=== PATIENT | female | born 1995 | race Caucasian/White ===

== ENCOUNTER 2018-11-22 15:04 | Emergency (ER) | payer BC ==
[2018-11-22] MEDS ORDERED: Ketorolac Tromethamine 30 MG/ML VIAL ONE (16:08)
== END 2018-11-22 16:26 | disposition home or self-care (01) ==
LOC: ERS 15:04
DX: M54.5 Low back pain (principal)
CPT/HCPCS: 96372; 99283; J1885

== ENCOUNTER 2020-04-19 04:03 | Day surgery (SDC) | payer BC, OTHER ==
[2020-04-19 05:22] VITALS: BMI 32.8
[2020-04-19] MEDS ORDERED: hydrALAZINE 20 MG/ML VIAL SLOW IVP PRN (07:09)
[2020-04-19] MEDS ORDERED: diphenhydrAMINE 50 MG/ML VIAL IVP PRN (07:10)
[2020-04-19] MEDS ORDERED: Metoclopramide HCl 10 MG/2 ML VIAL IVP PRN (07:10)
[2020-04-19] MEDS ORDERED: Lactated Ringer's 1,000 ML IV SCH (07:15)
--- NOTE | 2020-04-19 08:15 | PRG ---
DATE OF SERVICE: 04/19/2020 CHIEF COMPLAINT: Nausea, vomiting, and headache. HISTORY OF PRESENT ILLNESS: The patient is a 24-year-old G2, P1 female with an intrauterine at 30 weeks and 4 days, who woke up this morning about 2 o'clock with a bad pulsating headache, sensitive to light and standing that she reports is primarily now on her right side. She also reports that she subsequently has had nausea and vomiting associated with this headache and had not had these symptoms regularly prior. The patient does report that she has had headaches off and on throughout the . She also reports that she a few days ago went in to see a doctor for concerns of COVID and was tested negative. She also reports that she is currently on Macrobid for urinary tract infection, which she has been on for a couple of days. The patient denies fever, chest pain, shortness of breath, diarrhea or constipation, or new rashes. She has hip pressure when she sleeps, but denies any weakness. She denies vaginal bleeding or leakage of fluid. She denies urinary urgency or frequency. The patient reports that since coming to the hospital, her headache has improved some, though not resolved, and the patient has had no vomiting since arriving to the hospital. PAST MEDICAL HISTORY: Currently UTI and history of headaches. PAST SURGICAL HISTORY: She has had ankle surgery and wisdom teeth extraction. ALLERGIES: PENICILLIN. MEDICATIONS: 1. Macrobid. 2. vitamins. SOCIAL HISTORY: Denies drug, alcohol, or tobacco use. OB LABS: Unavailable at the time of dictation. REVIEW OF SYSTEMS: As per HPI. PHYSICAL EXAMINATION: VITAL SIGNS: Blood pressure 106/51, heart rate of 83, respiratory rate of 16, saturating 99% on room air, temperature 98.7. GENERAL: She appears to be in no acute distress. She is alert, oriented, cooperative, and pleasant to interact with. HEAD: Normocephalic and atraumatic. LUNGS: Are clear to auscultation bilaterally. HEART: Has a regular rate and rhythm. ABDOMEN: Soft, gravid, nontender. EXTREMITIES: Are nontender and nonedematous. heart tracing: Baby is difficult to trace, however, in the beginning 30 minutes or 40 minutes or so. The patient has fetus with a baseline in the 130s with moderate long-term variability, positive 15 x 15 accelerations, no decelerations. There is some irritability seen on the monitor, but not felt by the patient. ASSESSMENT AND PLAN: The patient is a 24-year-old female, presenting for headache, nausea, and vomiting. This symptoms are consistent with migraine headache. Though her headache has improved, it has not been improved to the patient's satisfaction. She has accepted a migraine protocol in attempt to resolve this headache of Reglan 10 mg q.30 minutes x2 hours p.r.n. for headache and Benadryl 25 mg q.1 hour x2 p.r.n. for headache. The patient is getting IV and will be also given IV fluids during this time. Dr. Reddy is the oncoming physician who will be giving disposition. Anticipate discharge home. The fetus has a category 1 tracing and reactive NST. Job ID: [id number]
--- NOTE | 2020-04-19 09:10 | PDOC.BPN ---
- Brief Progress Note Encounter Date: 04/19/20 Encounter Time: 09:09 Patient feeling better after 1 round of the migraine protocol. Ready to go home, requesting note for work. D/c home with precautions. Advised to follow up as scheduled.
[2020-04-19] MEDS ORDERED: FLU VACC QS2020-21(6MOS UP)/PF 60 MCG/0.5 ML SYRINGE IM ONE (21:00)
== END 2020-04-19 09:15 | disposition home or self-care (01) ==
LOC: L&D/OP 04:03
PROVIDERS: ATTEND Obstetrics & Gynecology
DX: O21.2 Late vomiting of pregnancy (principal); O99.891 Other specified diseases and conditions complicating pregnancy; R51.9 Headache, unspecified; O23.43 Unspecified infection of urinary tract in pregnancy, third trimester; B96.89 Other specified bacterial agents as the cause of diseases classified elsewhere; Z3A.30 30 weeks gestation of pregnancy; Z79.2 Long term (current) use of antibiotics; Z88.0 Allergy status to penicillin; Z88.5 Allergy status to narcotic agent
CPT/HCPCS: 96360; 96375; 99282; J1200; J2765

== ENCOUNTER 2020-05-26 18:08 | Day surgery (SDC) | payer BC, OTHER ==
[2020-05-26 18:39] VITALS: BMI 47.2
[2020-05-26] MEDS ORDERED: hydrALAZINE 20 MG/ML VIAL SLOW IVP PRN (19:06)
[2020-05-26 19:16] LABS: Amnisure Test No Membranes Rupture (No Rupture)
[2020-05-26 19:18] LABS: Amnisure Internal Control QC ACCEPTABLE (ACCEPTABLE)
--- NOTE | 2020-05-26 19:27 | PDOC.FPROB ---
FMR OB H&P: HPI - History of Present Illness Chief Complaint: LOF Indentification: 24yo @ 35.6 presents for concern for LOF History of Present Illness: 24yo @ 35.6 presents for concern for LOF. Patient states was seen in office earlier this week and told her "fluid was low," and she has follow up next week for repeat sono and discuss management. Earlier today at approx 1100 she noticed yenifer liner was wet with a yellow fluid. Then again at approx 1500 with a clear fluid. No foul smell. No dysuria, but does endorse suprapubic cramping. Also endorses mild vaginal irritation and burning with a brown-yellow discharge at times. Endorses good movement, no vaginal bleeding, no contractions. Denies MAGUIRE, vision changes, SOB, CP, fever/chills, n/v. No recent intercourse. No history of STDs. Primary Care Physician: Roxanne FMR OB H&P: Current - Care : 2 Para: 1001 Gestational age: 35.6 Due date: 06/24/20 - OB Labs Blood type: A RH: positive Antibody Screen: negative HIV: negative RPR: negative HepBsAg: negative Rubella: immune Quad screen: negative Gonorrhea: negative Chlamydia: negative 1 hour gtt: 89 H&H: 13.0 Platelets: 234 Additional labs: Hep C negative FMR OB H&P: History - Past Medical History PMH: Occasional headaches, GERD - OB History OB History: Previous vaginal delivery, term, no complications or during labor. - OIL [employer] MECH[employer]IC History [employer] MECH[employer]IC History: Denies - Surgical History Sx History: Ankle surgery, teeth extraction - Social History Social History: Engaged. Denies Tob, EtOH, illicits. - Family History Family History: Denies FMR OB H&P: Medications - Current Home Medications: Medication Instructions Recorded Confirmed Type Pnv No.95/Ferrous Fum/Folic AC 1 tab PO DAILY 05/26/20 05/26/20 History [ [place]] Allergies/Adverse Reactions: Allergies Allergy/AdvReac Type Severity Reaction Status Date / Time Penicillins Allergy Verified 05/26/20 18:40 FMR OB H&P: ROS - Review of Systems General: denies: fever/chills, weight/appetite/sleep changes, night sweats, fatigue Eyes: denies: vision changes, scotomas ENT: denies: nasal congestion, rhinorrhea Cardiovascular: denies: chest pain, palpitation Respiratory: denies: cough, congestion, shortness of breath Gastrointestinal: denies: abdominal pain, cramping, nausea, vomiting, diarrhea, constipation Genitourinary (Female): reports: vaginal discharge, vaginal pain. denies: incontinence, dysuria, hematuria, hesitancy, vaginal bleeding, contractions Musculoskeletal: denies: pain, stiffness Neurologic: denies: numbness, syncope Integumentary: denies: rash Psychological: denies: depression, anxiety FMR OB H&P: Vital Signs - Maternal Vital signs: T 98, HR 100, RR 18, BP 128/76, 99% RA - Heart Tones Baseline: 130 Variability: moderate Acceleration: present Deceleration: absent Category: category 1 [place] contractions every: occasional, not felt by patient FMR OB H&P: Physical Exam - Physical Exam General: NAD, awake, alert and oriented, other (obese) HEENT: normocephalic and atraumatic, PERRLA, EOMI, MMM, conjunctiva clear Neck: supple, trachea midline Heart: RRR, normal S1/S2, no murmurs/rubs/gallops, no edema General: CTAB, no respiratory distress, good air movement, no rales/rhonchi, no wheezing Abdomen: soft, gravid, non-tender, bowel sound present Musculoskeletal: FROM in all four extremities Neurological: no focal deficit Psychiatric: intact recent and remote memory, good judgement and insight, normal mood and affect - Pelvic Exam Vulva: normal hair distribution, no masses, no lesions, no discharge, no blood, normal rugae Cervix: no masses, no lesions, no blood Deviation from normal: thick, yellow discharge in posterior fornix, mild cervical irritation. Membranes: Intact. No LOF with valsalva, no pooling of fluid noted FMR OB H&P: Results - Labs Lab results: Laboratory Results - last 24 hr 05/26/20 18:55 Amnio Swab Test No Membranes Rupture FMR OB H&P: A/P - Problem List (1) Term Current Visit: Yes Status: Acute Code(s): Z34.90 - ENCNTR FOR SUPRVSN OF NORMAL , UNSP, UNSP TRIMESTER Disposition: 24yo @ 35.6 presents for concern for LOF #Term , concern for SROM - Concern for SROM with LOF today at 2 episodes - Also concerns for suprapubic cramping and vaginal discharge - Amnisure negative, Spec exam with no pooling and no LOF with valsalva - Spec exam with mild thick, yellow discharge and cervicitis. VP3 obtained and positive for BV. - Straight cath UA obtained and clean, no evidence of UTI - Cat 1 FHT, accels, no deccels, occasional small ctx, not felt by patient #"Low fluid" per patient - reported by patient, found on sono this week - FHT reassuring - Contacted Dr. Oliveira, SHIRIN was low end of normal but not oligo. Recommended patient follow up next week as previously scheduled. Information given to patient. PCP: Roxanne Dispo: Amnisure and Spec exam negative for ROM. UA clean. VP3 positive for BV, w ill send in flagyl. Cat 1 FHT, no evidence of labor. Encouraged close follow up with PCP early next week as previously scheduled. Discussion: Date/Time: 05/26/201923 This H&P was discussed with Dr. Cortez who agrees with the above documentation and plan.
[2020-05-26 19:46] LABS: Bacteria/HPF None Seen HPF (None Seen); Bilirubin Negative (Negative); Blood, Urine Negative (Negative); Clarity Clear (Clear); Glucose, Urine (Dipstick) Normal (Negative); Ketone, Urine Negative (Negative); Leukocyte Negative Leu/uL (Negative); Mucous/LPF Rare LPF (<2+); Nitrite Negative (Negative); Protein, Urine (Dipstick) 20 mg/dL (Neg-Trace); RBC/HPF 0-3 HPF (0-3); Specific Gravity, Urine 1.028 (1.002-1.036); Squamous Epithelial 0-3 HPF (0-3); Urobilinogen 3 mg/dL (Less than 2); WBC/HPF 0-3 HPF (0-3); pH, Urine 6.5 (5.0-9.0)
--- NOTE | 2020-05-26 21:03 | PDOC.BPN ---
- Brief Progress Note OBGYN Patient seen. Labs reviewed. See my dictated H&P.
--- NOTE | 2020-05-26 21:23 | HP ---
TIME: The time of first evaluation was roughly 1999, it is now 2056. LOCATION: Labor and Delivery Triage. This is a patient of Dr. Oliveira. Estimated gestational age is 35 weeks and 6 days. CHIEF COMPLAINT: Possible leakage of fluid. HISTORY OF PRESENT ILLNESS: This is a 24-year-old G2, P1 with a previous vaginal delivery, who is at 35 weeks and [address] days, who saw Dr. Oliveira earlier in the week and stated she had "low fluid" by ultrasound, but not enough to require any intervention. She does not know what the low fluid actually was, but she is scheduled for followup by next week with him. She states that she was wearing a panty liner and found that it was wet with yellowish fluid earlier in the day, but denies a large gush of fluid. She denies any vaginal bleeding or contractions. She has good movement. She denies any complications so far. She denies any fevers as well. REVIEW OF SYSTEMS: Complete review of systems was checked and is otherwise negative unless specified in the HPI. GENERAL: No sick contacts. No fever. No chills. PULMONARY: No shortness of breath. CARDIOVASCULAR: No chest pain. NEUROLOGICAL: No headache. No visual changes. EXTREMITIES: No unusual calf swelling or unusual calf pain. PAST MEDICAL HISTORY: Significant only for obesity with a BMI of 47. ALLERGIES: TO PENICILLIN, WHICH GIVES HER A RASH. PAST SURGICAL HISTORY: Ankle surgery in the past and was wisdom tooth. OB HISTORY: She had vaginal delivery x1 in the past. SOCIAL HISTORY: Negative for alcohol, tobacco, and drug use. CURRENT MEDICATIONS: vitamins. PHYSICAL EXAMINATION: VITAL SIGNS: Her blood pressure is 128/76, pulse is 100, respirations are 18 and unlabored, O2 saturation is 99% on room air. Her temperature is 98 degrees. GENERAL: She is in no acute distress. ABDOMEN: Soft and nontender. PELVIC: By Dr. Brown reveals no gross evidence of rupture. Sterile speculum exam was performed with no pooling and no evidence of gross rupture. She did have some yellow discharge in the vagina. INTERVENTIONS ORDERED: VP3 and AmniSure were sent. MONITORING: I reviewed the monitor and I find the heart tones to be in the normal range with moderate variability and accelerations. There are no pathological decelerations. This is a reassuring/reactive strip. There are no contractions on tocodynamometer. LABORATORY RESULTS: The AmniSure returned negative for rupture. The VP3 returned positive for bacterial vaginosis. ASSESSMENT: This is a 24-year-old G2, P1, at 35 weeks and 6 days, patient of Dr. Oliveira, with no evidence of leakage of fluid, but evidence of bacterial vaginosis. PLAN: 1. Reassurance given. 2. UA was also collected to make sure that there was no UTI/ASB and this was nonsignificant. 3. Flagyl for bacterial vaginosis. 4. The low fluid was reviewed with her. As the ACOG states that isolated oligohydramnios may have delivery any time from 36th weeks until 37 weeks and 6 days, we made a recommendation to follow up with Dr. Oliveira for a plan of care. We did not get a largest pocket today as the strip is reactive and we were not sure what Dr. Oliveira had found before, but there is no evidence of acute concern at this time. 5. Because there is no evidence of rupture, with reassuring heart tones, we will go ahead and have her released and follow up as an outpatient. Job ID: [id number]
[2020-05-27] MEDS ORDERED: FLU VACC QS2020-21(6MOS UP)/PF 60 MCG/0.5 ML SYRINGE IM ONE (09:00)
== END 2020-05-26 21:23 | disposition home or self-care (01) ==
LOC: L&D/OP 18:08
PROVIDERS: ATTEND Obstetrics & Gynecology
DX: O23.593 Infection of other part of genital tract in pregnancy, third trimester (principal); B96.89 Other specified bacterial agents as the cause of diseases classified elsewhere; O99.613 Diseases of the digestive system complicating pregnancy, third trimester; K21.9 Gastro-esophageal reflux disease without esophagitis; O99.213 Obesity complicating pregnancy, third trimester; E66.9 Obesity, unspecified; Z3A.35 35 weeks gestation of pregnancy; Z88.0 Allergy status to penicillin
CPT/HCPCS: 81001; 84112; 87480; 87510; 87660

== ENCOUNTER 2020-07-27 12:42 | Outpatient (CLI) | payer BC, OTHER ==
[2020-07-27 14:36] LABS: #Basophils 0.1 10x3/uL (0.0-0.2); #Eosinphils 0.3 10x3/uL (0.0-0.5); #Monocytes 0.4 10x3/uL (0.0-1.1); #Neutrophils 3.9 10x3/uL (1.5-8.4); %Basophils 0.7 % (0.0-2.0); %Eosinophils 4.8 % (0.0-6.0); %Lymphocytes 33.3 % (18.0-47.0); %Monocytes 5.9 % (0.0-10.0); Mean Corpuscular HGB CONC 31.9 g/dL (32.0-36.0); Mean Corpuscular Volume 90.8 fl (81.6-98.3); Platelet Count 283 10x3/uL (150-450); RBC Distribution Width 12.8 % (11.5-14.5); Red Blood Cell (RBC) Count 4.48 10x6/uL (3.90-5.03); White Blood Cell (WBC) Count 7.1 10x3/uL (3.5-10.5)
[2020-07-27 14:44] LABS: ALT (SGPT) 26 U/L (8-55); AST (SGOT) 19 U/L (5-34); Alkaline Phosphatase 36 U/L (40-110); Anion Gap 12 mmol/L (10-20); BUN (Urea Nitrogen) 12 mg/dL (7.0-18.7); Bilirubin, Direct 0.2 mg/dL (0.1-0.3); Bilirubin, Total 0.4 mg/dL (0.2-1.2); Calc. Creatinine Clearance 0 mL/min (70-130); Calcium 9.6 mg/dL (7.8-10.44); Carbon Dioxide 28 mmol/L (22-29); Chloride 106 mmol/L (98-107); Glucose 81 mg/dL (70-105); Potassium 4.5 mmol/L (3.5-5.1); Protein, Total 6.8 g/dL (6.0-8.3); Sodium 141 mmol/L (136-145)
[2020-07-27 21:53] LABS: SARS-CoV-2 PCR by NAA Not Detected (NotDetected)
== END 2020-07-27 12:43 | disposition home or self-care (01) ==
LOC: LABBT 12:42
PROVIDERS: ATTEND Surgery
DX: Z01.812 Encounter for preprocedural laboratory examination (principal); Z20.822 Contact with and (suspected) exposure to COVID-19
CPT/HCPCS: 80048; 80076; 85025; 87635; U0003; U0005

== ENCOUNTER 2020-08-01 08:21 | Day surgery (SDC) | payer BC, OTHER ==
[2020-07-31 09:31] VITALS: BMI 45.8
[2020-08-01] MEDS ORDERED: Bupivacaine 0.25% HCL 30 ML VIAL ONE (09:53)
[2020-08-01] MEDS ORDERED: Lidocaine 2% w/Epinephrine 1:200K 20 ML VIAL ONE (09:53)
[2020-08-01] MEDS ORDERED: Lidocaine 2% Jelly 5 ML TUBE ONE (09:56)
[2020-08-01] MEDS ORDERED: Fentanyl 100 MCG/2 ML VIAL ONE ×3 (09:56→12:03)
[2020-08-01] MEDS ORDERED: Dexamethasone 20 MG/5 ML VIAL ONE (10:20)
[2020-08-01] MEDS ORDERED: Lidocaine 1% PF 5 ML VIAL ONE (10:20)
[2020-08-01] MEDS ORDERED: Ketorolac Tromethamine 30 MG/ML VIAL ONE (10:20)
[2020-08-01] MEDS ORDERED: Glycopyrrolate 0.2 MG/ML 5 ML SYRINGE ONE (10:20)
[2020-08-01] MEDS ORDERED: Ondansetron PF 4 MG/2 ML Vial ONE (10:20)
[2020-08-01] MEDS ORDERED: PROPOFOL 200 MG/20 ML VIAL ONE (10:20)
[2020-08-01] MEDS ORDERED: Rocuronium Bromide 10 MG/ML (10ML VIAL) ONE (10:20)
[2020-08-01] MEDS ORDERED: HYDROcodone/Acetaminophen 5/325 mg Tablet ONE (13:16)
== END 2020-08-01 14:28 | disposition home or self-care (01) ==
LOC: SDC 08:21
PROVIDERS: ATTEND Surgery
PROC: 0FT44ZZ Resection of Gallbladder, Percutaneous Endoscopic Approach (ICD-10-PCS; principal; 2020-08-01)
DX: K80.10 Calculus of gallbladder with chronic cholecystitis without obstruction (principal); Z88.0 Allergy status to penicillin
CPT/HCPCS: 88304; J0690; J1100; J1885; J2405; J2704; J3010; S0020